=== PATIENT | male | born 1940 | race Caucasian/White ===

== ENCOUNTER 2017-06-07 18:11 | Observation (INO) ==
--- NOTE | 2017-06-07 18:29 | Emergency Department Note ---
Disposition Clinical Impression: Acute renal insufficiency Stroke Qualifiers: CVA mechanism: unspecified Qualified Code(s): I63.9 - Cerebral infarction, unspecified Disposition: Admitted As Inpatient Condition: Good Referrals: Dane Barrera MD [Primary Care Provider] - Forms: ED Satisfaction Letter Time of Disposition: 21:30 Neuro HPI - General Chief Complaint: ED Neuro Symptoms/Deficit Stated Complaint: Left Sided Weakness Time Seen by Provider: 06/07/17 18:14 Source: patient, EMS Limitations: no limitations Nursing Notes Reviewed: Yes Vital Signs Reviewed: Yes - History of Present Illness HPI Narrative: 76-year-old male presents to emergency department after waking up with left sided upper and lower extremity weakness this morning at 6 AM. Patient has no previous history of strokes. Patient states that his left knee was buckling upon ambulation. Patient states that the left upper and lower extremities feel different to him. Patient's family states that he is speaking a little slower than he was prior to the incident. Patient does admit to falling and hitting his head as well. He denies any neck pain. Patient states that he was not dizzy, did not have any palpitations when he fell. He stated that he fell due to his left leg weakness and his knee buckling. Patient's son had any issues with that in the past. - Related Data Home Medications: Home Medications Medication Instructions Recorded Confirmed Albuterol Sulfate [Albuterol 2 puff IH Q4HR PRN 06/07/17 06/07/17 Inhaler] Aspirin [Lo-Dose Aspirin EC] 81 mg PO DAILY 06/07/17 06/07/17 Clopidogrel [Plavix] 75 mg PO DAILY 06/07/17 06/07/17 Fluticasone/Salmeterol [Advair 1 each IH BID PRN 06/07/17 06/07/17 100-50 Diskus] Pioglitazone [Actos] 15 mg PO 0800 06/07/17 06/07/17 Primidone [Mysoline] 50 mg PO HS 06/07/17 06/07/17 Valsartan [Diovan] 160 mg PO DAILY 06/07/17 06/07/17 clonazePAM [Clonazepam] 2 mg PO DAILY 06/07/17 06/07/17 hydroCHLOROthiazide 12.5 mg PO DAILY 06/07/17 06/07/17 [Hydrochlorothiazide] Allergies/Adverse Reactions: Allergies Allergy/AdvReac Type Severity Reaction Status Date / Time codeine AdvReac Dizziness Verified 12/11/16 08:36 All systems ED: reviewed and negative except as stated. Review of Systems: As Per HPI Constitutional: Reports: weakness. Denies: fever Cardiovascular: Denies: chest pain, syncope Respiratory: Denies: cough, dyspnea Gastrointestinal: Reports: abdominal pain Musculoskeletal: Denies: back pain, neck pain Integumentary: Denies: rash, abrasion Neurological: Reports: weakness, numbness, paresthesias. Denies: headache Endocrine: Denies: fatigue Hematological/Lymphatic: Denies: easy bleeding Past Medical History - Past Medical History Medical history: Reports: COPD, diabetes, hypertension, myocardial infarction Psychiatric history: Reports: no psych history - Social History Smoking Status: Former smoker Smokeless Tobacco Status: No Alcohol use: Reports: none Drug use: Reports: none Physical Exam CONSTITUTIONAL: Alert and oriented X3, well-nourished, well appearing, in no apparent distress HEAD: Normocephalic; atraumatic. EYES: PERRL, no scleral icterus. NOSE: The nose is normal in appearance without rhinorrhea RESP: Normal chest excursion with respiration; breath sounds clear and equal bilaterally; no wheezes, rhonchi, or rales CARD: Regular rhythm, without murmurs, rub or gallop ABD: Non-distended; mild tenderness to palpation of the suprapubic region of the abdomen, soft,without rigidity, rebound or guarding SKIN: Normal for age and race; warm and dry; no apparent lesions Neuro: GCS 15, mild left sided facial droop, decreased sensation the left side of the face, decreased sensation of the left upper and left lower extremity, strength 4 out of 5 in the left upper and left lower extremity, 5 out of 5 in the right upper and right lower extremity. - General Limitations: no limitations General appearance: alert Course Vital Signs Temperature 98.0 F 06/07/17 18:13 Pulse Rate 103 06/07/17 18:13 Respiratory Rate 16 06/07/17 18:13 Blood Pressure 187/104 06/07/17 18:13 O2 Sat by Pulse Oximetry 98 06/07/17 18:13 Temperature 98.0 F 06/07/17 18:13 Pulse Rate 86 06/07/17 20:12 Respiratory Rate 14 06/07/17 20:12 Blood Pressure 170/84 06/07/17 20:12 O2 Sat by Pulse Oximetry 96 06/07/17 20:12 Oxygen Delivery Oxygen Delivery Room Air Neuro Symptoms/Deficit - MDM Narrative Medical decision making narrative: 76-year-old male presents to the emergency department with concern for ischemic stroke. We are obtaining a CT scan of the head without contrast to rule out intracranial hemorrhage. We will also obtain CBC, BMP, urinalysis, electrocardiogram, troponin, chest x-ray. Head CT reveals no acute intracranial abnormality. There are tiny left basal ganglia lacunar infarction which appears chronic as well as moderate chronic microvascular ischemic changes and global cerebral atrophy. Patient is currently out of the window for TPA as his symptoms started at 6 AM this morning. Patient was given aspirin here in the emergency department Chest x-ray did not reveal any acute abnormality. Patient was mildly hypertensive here initially, his initial blood pressure was 187/104. This did improve to 170/84. We will not give any blood pressure lowering medications at this time. Patient does have a mildly elevated creatinine at 1.32. This is not far from his baseline. We will admit this patient to the hospital at this time. Patient family agree with the plan. Head CT 06/07/17 18:25 IMPRESSION: No acute intracranial abnormality. Tiny left basal ganglia lacunar infarction which appears chronic. Moderate chronic microvascular ischemic changes and global cerebral atrophy. D/ / Samuel Wynn MD / Samuel Wynn MD Interpreting Provider: Samuel Wynn MD Chest X-Ray 06/07/17 18:58 IMPRESSION: No acute abnormality. D/ / Mark Alexandra / Mark Alexandra Interpreting Provider: Mark Alexandra Vital Signs Temperature 98.0 F 06/07/17 18:13 Pulse Rate 103 06/07/17 18:13 Respiratory Rate 16 06/07/17 18:13 Blood Pressure 187/104 06/07/17 18:13 O2 Sat by Pulse Oximetry 98 06/07/17 18:13 Temperature 98.0 F 06/07/17 18:13 Pulse Rate 86 06/07/17 20:12 Respiratory Rate 14 06/07/17 20:12 Blood Pressure 170/84 06/07/17 20:12 O2 Sat by Pulse Oximetry 96 06/07/17 20:12 Oxygen Delivery Oxygen Delivery Room Air - Lab Data Result diagrams: 06/07/17 18:41 06/07/17 18:41 Lab Results 06/07/17 06/07/17 06/07/17 Range/Units 18:41 18:41 18:41 WBC 7.4 (4.3-11.1) K/mcL RBC 5.02 (4.19-5.50) M/mcL Hgb 15.9 (12.9-16.9) g/dL Hct 46.8 (37.5-50.1) % MCV 93.2 (83.0-100.0) fL MCH 31.7 (28.0-33.3) pg MCHC 34.0 (31.6-35.5) g/dL RDW 12.9 (11.5-14.5) % Plt Count 170 (140-400) K/mcL MPV 9.4 (9.4-12.4) fL Immature Gran % 0.4 (0-4) % Seg Neutrophils % 60.6 % Lymphocytes % 13.1 % Monocytes % 9.7 % Eosinophils % 14.7 % Basophils % 1.5 % Neutrophils # 4.5 (1.6-8.9) K/mcL Lymphocytes # 1.0 (0.6-4.6) K/mcL Monocytes # 0.7 (0.0-1.3) K/mcL Eosinophils # 1.1 H (0.0-0.6) K/mcL Basophils # 0.1 (0.0-0.2) K/mcL PT 10.5 (9.4-12.1) Seconds INR 1.0 APTT 28.9 (26.0-36.0) Seconds Sodium 139 (136-145) mEq/L Potassium 4.3 (3.5-4.5) mEq/L Chloride 104 (98-109) mEq/L Carbon Dioxide 25 (19-29) mEq/L BUN 28 H (8-26) mg/dL Creatinine 1.32 H (0.72-1.25) mg/dL Est GFR ( Amer) > 60 (> 60) Est GFR (Non-Af Amer) 52 L (> 60) BUN/Creatinine Ratio 21 (6-26) Glucose 210 H (70-99) mg/dL Calculated Osmolality 300 (280-300) Calcium 9.3 (8.6-10.8) mg/dL Troponin I (0-0.03) ng/mL B-Natriuretic Peptide (0-100) pg/mL TSH (0.350-4.840) mcIU/mL Urine Color (Yellow) Urine Clarity (Clear) Urine pH (5.0-8.0) pH Units Ur Specific [place] (1.010-1.025) Urine Protein (Neg-Trace) mg/dL Urine Glucose (UA) (Normal) mg/dL Urine Ketones (Negative) mg/dL Urine Blood (Negative) Urine Nitrite (Negative) Urine Bilirubin (Negative) Urine Urobilinogen (Normal) mg/dL Ur Leukocyte Esterase (Negative) Ur Culture Indicated? (NO) 06/07/17 06/07/17 06/07/17 Range/Units 18:41 18:41 18:41 WBC (4.3-11.1) K/mcL RBC (4.19-5.50) M/mcL Hgb (12.9-16.9) g/dL Hct (37.5-50.1) % MCV (83.0-100.0) fL MCH (28.0-33.3) pg MCHC (31.6-35.5) g/dL RDW (11.5-14.5) % Plt Count (140-400) K/mcL MPV (9.4-12.4) fL Immature Gran % (0-4) % Seg Neutrophils % % Lymphocytes % % Monocytes % % Eosinophils % % Basophils % % Neutrophils # (1.6-8.9) K/mcL Lymphocytes # (0.6-4.6) K/mcL Monocytes # (0.0-1.3) K/mcL Eosinophils # (0.0-0.6) K/mcL Basophils # (0.0-0.2) K/mcL PT (9.4-12.1) Seconds INR APTT (26.0-36.0) Seconds Sodium (136-145) mEq/L Potassium (3.5-4.5) mEq/L Chloride (98-109) mEq/L Carbon Dioxide (19-29) mEq/L BUN (8-26) mg/dL Creatinine (0.72-1.25) mg/dL Est GFR ( Amer) (> 60) Est GFR (Non-Af Amer) (> 60) BUN/Creatinine Ratio (6-26) Glucose (70-99) mg/dL Calculated Osmolality (280-300) Calcium (8.6-10.8) mg/dL Troponin I 0.01 (0-0.03) ng/mL B-Natriuretic Peptide 24 (0-100) pg/mL TSH 3.324 (0.350-4.840) mcIU/mL Urine Color (Yellow) Urine Clarity (Clear) Urine pH (5.0-8.0) pH Units Ur Specific [place] (1.010-1.025) Urine Protein (Neg-Trace) mg/dL Urine Glucose (UA) (Normal) mg/dL Urine Ketones (Negative) mg/dL Urine Blood (Negative) Urine Nitrite (Negative) Urine Bilirubin (Negative) Urine Urobilinogen (Normal) mg/dL Ur Leukocyte Esterase (Negative) Ur Culture Indicated? (NO) 06/07/17 Range/Units 19:17 WBC (4.3-11.1) K/mcL RBC (4.19-5.50) M/mcL Hgb (12.9-16.9) g/dL Hct (37.5-50.1) % MCV (83.0-100.0) fL MCH (28.0-33.3) pg MCHC (31.6-35.5) g/dL RDW (11.5-14.5) % Plt Count (140-400) K/mcL MPV (9.4-12.4) fL Immature Gran % (0-4) % Seg Neutrophils % % Lymphocytes % % Monocytes % % Eosinophils % % Basophils % % Neutrophils # (1.6-8.9) K/mcL Lymphocytes # (0.6-4.6) K/mcL Monocytes # (0.0-1.3) K/mcL Eosinophils # (0.0-0.6) K/mcL Basophils # (0.0-0.2) K/mcL PT (9.4-12.1) Seconds INR APTT (26.0-36.0) Seconds Sodium (136-145) mEq/L Potassium (3.5-4.5) mEq/L Chloride (98-109) mEq/L Carbon Dioxide (19-29) mEq/L BUN (8-26) mg/dL Creatinine (0.72-1.25) mg/dL Est GFR ( Amer) (> 60) Est GFR (Non-Af Amer) (> 60) BUN/Creatinine Ratio (6-26) Glucose (70-99) mg/dL Calculated Osmolality (280-300) Calcium (8.6-10.8) mg/dL Troponin I (0-0.03) ng/mL B-Natriuretic Peptide (0-100) pg/mL TSH (0.350-4.840) mcIU/mL Urine Color Yellow (Yellow) Urine Clarity Clear (Clear) Urine pH 6.5 (5.0-8.0) pH Units Ur Specific [place] 1.019 (1.010-1.025) Urine Protein Negative (Neg-Trace) mg/dL Urine Glucose (UA) Normal (Normal) mg/dL Urine Ketones Negative (Negative) mg/dL Urine Blood Negative (Negative) Urine Nitrite Negative (Negative) Urine Bilirubin Negative (Negative) Urine Urobilinogen Normal (Normal) mg/dL Ur Leukocyte Esterase Negative (Negative) Ur Culture Indicated? NO (NO) - EKG Data EKG attestation: Yes I reviewed and interpreted this EKG. EKG results narrative: 18:22 Ventricular rate 99 bpm, AL interval 225 ms, QS duration 170 ms, QT 317 ms, QTC 374 ms, left axis deviation. Sinus rhythm with a ventricular rate of 99 bpm. There is a first-degree AV block.No acute ischemic changes are noted on the EKG. No significant changes compared to the old EKG dated on November 29, 2009. NIH Stroke Scale - Level of Consciousness LOC: Alert - LOC Questions LOC Questions: Answers both correctly - LOC Commands LOC Commands: Performs both correctly - Best Gaze Best Gaze: Normal - Visual Visual: No visual loss - Facial Palsy Facial Palsy: Minor asymmetry on smiling, flattened nasolabial fold - Motor Arms Motor Arm-Left: No drift for 10 seconds Motor Arm-Right: Some effort against gravity, limb drifts to bed - Motor Legs Motor Leg-Left: Some effort against gravity, limb drifts to bed Motor Leg-Right: No drift for 5 seconds - Limb Ataxia Limb Ataxia: Present in ONE limb - Sensory Sensory: Mild to moderate loss, "not as sharp" - Best Language Best Language: No aphasia - Dysarthria Dysarthria: Normal - Extinction and Inattention Extinction and Inattention: Normal - NIHSS Total Score NIHSS Total Score: 7 TPA Checklist - LKW: 3-4.5 hrs Add. Warnings/Precautions Patient/family understanding: The patient/family members have been counseled and understood the risk, benefit , and alternatives of treatment.
[2017-06-07 18:47] LABS: Basophils # 0.1 K/mcL (0.0-0.2); Basophils % 1.5 %; Eosinophils # 1.1 K/mcL (0.0-0.6); Eosinophils % 14.7 %; Hematocrit 46.8 % (37.5-50.1); Hemoglobin 15.9 g/dL (12.9-16.9); Immature Granulocytes % 0.4 % (0-4); Lymphocytes % 13.1 %; Mean Corpuscular Hemoglobin 31.7 pg (28.0-33.3); Mean Corpuscular Volume 93.2 fL (83.0-100.0); Mean Platelet Volume 9.4 fL (9.4-12.4); Monocytes # 0.7 K/mcL (0.0-1.3); Monocytes % 9.7 %; Neutrophils # 4.5 K/mcL (1.6-8.9); Platelet Count 170 K/mcL (140-400); Red Blood Count 5.02 M/mcL (4.19-5.50); Red Cell Distribution Width 12.9 % (11.5-14.5); Segmented Neutrophils % 60.6 %
[2017-06-07 18:53] LABS: Prothrombin Time 10.5 Seconds (9.4-12.1)
[2017-06-07 18:55] LABS: Activated Partial Thrombo Time 28.9 Seconds (26.0-36.0)
[2017-06-07 19:00] LABS: BUN/Creatinine Ratio 21 (6-26); Blood Urea Nitrogen 28 mg/dL (8-26); Calcium 9.3 mg/dL (8.6-10.8); Carbon Dioxide 25 mEq/L (19-29); Chloride 104 mEq/L (98-109); Glucose 210 mg/dL (70-99); Osmolality,Calculated 300 (280-300); Potassium 4.3 mEq/L (3.5-4.5); Sodium 139 mEq/L (136-145); eGFR For African Americans > 60 (> 60); eGFR For Non-African Americans 52 (> 60)
[2017-06-07] MEDS ORDERED: 0.9 % Sodium Chloride 1,000 ML IVC ONE (19:04)
[2017-06-07 19:31] LABS: Bilirubin,Urine Negative (Negative); Blood,Urine Negative (Negative); Clarity,Urine Clear (Clear); Color,Urine Yellow (Yellow); Glucose,Urine (UA) Normal (Normal); Ketones,Urine Negative (Negative); Leukocyte Esterase,Urine Negative (Negative); Nitrite,Urine Negative (Negative); PH,Urine 6.5 pH Units (5.0-8.0); Protein,Urine Negative (Neg-Trace); Specific Gravity,Urine 1.019 (1.010-1.025); Urobilinogen,Urine Normal (Normal)
[2017-06-07] MEDS ORDERED: Aspirin 81 MG TAB.CHEW PO ONE (20:14)
--- NOTE | 2017-06-07 20:41 | Emergency Department Note ---
START Narrative - START START: I examined this patient and my medical decision-making was reviewed with the Resident Physician. I agree with the documented findings, disposition and treatment plan as described except to the extent set forth below. 76 year old male presnts to the ED with left sided upper extremity waekness focuses on weakened cell attendant compared to the right. Marco is hypertensive with 180 /104 and now it is 170/84. Marco has mild insufficiency in addiiton to that. Marco has a old lacunar infarct without any previous neurological defeciencies. Marco will be admitted to medicine.
[2017-06-07] MEDS ORDERED: Ondansetron 4 MG/2 ML VIAL IVP PRN (21:59)
[2017-06-07] MEDS ORDERED: Acetaminophen 325 MG TABLET PO PRN (21:59)
[2017-06-07] MEDS ORDERED: Naloxone 0.4 MG/ML INJ IVP PRN (21:59)
--- NOTE | 2017-06-07 22:35 | Internal Med History&Physical ---
<Lulu Farah - Last Filed: 06/08/17 00:11> Date of Encounter: 06/08/17 Time of Encounter: 22:34 Assessment and Plan (1) Stroke Current visit: Yes Status: Acute Patient awoke this morning experiencing left-sided weakness as well as left- sided facial droop. CT of head does show an old lacunar infarct As well as chronic microvascular ischemic changes-the patient does have a history of hypertension diabetes and hyperlipidemia. Symptoms started approximately 6 AM this morning and he is beyond the window for TPA We will obtain MRI of head and brain NIHSS assessment We will obtain cardiac echo Carotid Doppler Obtain lipid profile Continue with aspirin and Plavix we will add a statin Continuous cardiac monitoring Fall precautions Consult neurology Consult PT OT and speech therapy Bedside swallowing evaluation per nursing Nothing by mouth for now Monitor blood sugars We will allow for permissive hypertension Qualifiers: CVA mechanism: unspecified Qualified Code(s): I63.9 - Cerebral infarction, unspecified (2) Acute renal insufficiency Current visit: Yes Status: Acute Patient's creatinine is slightly prolonged at 1.32 previous creatinine was 1.24. 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 We will continue to monitor and allow for permissive hypertension Qualifiers: Hypertension type: essential hypertension Qualified Code(s): I10 - Essential (primary) hypertension (5) DVT prophylaxis Current visit: Yes Status: Acute 1 heparin subcutaneous Internal Medicine - H&P: HPI Chief complaint: L sided weakness Admitted From: Emergency Dept Plans for Post Hospital Care: Home History of present illness: Mr. Jolley is a 76 year old male past medical history of diabetes hypertension coronary artery disease with 1 stent [place]. Patient awoke this morning around 6 AM was experiencing left-sided upper and lower extremity weakness. When attempting to ambulate on the surface left knee was buckling under her head he did have a fall striking his head on the wall he did not lose any consciousness he denies any neck pain. He denies any headache or vision changes, speech or difficulty swallowing. He presented to the ER with the above complaints. Lab work was obtained which did reveal a slightly elevated creatinine 1.32 which is not far from baseline CT of head revealed no acute intracranial abnormality. There are tiny left basal ganglia lacunar infarcts that appeared to be chronic as well as moderate chronic microvascular ischemic changes. Patient was outside the window for TPA. He initially presented with a blood pressure 187/ 104 however that did improve. The patient was admitted for further workup and evaluation. Presently patient does not appear to be any respiratory distress he denies any chest pain. He does appear to have a left-sided facial droop and left-sided weakness. He is hemodynamically stable this time. I did review his case with Dr. Machado who agrees with plan. Past Med Surg Social Fam HX - Past Medical History Medical history: COPD, diabetes, hypertension, myocardial infarction Psychiatric history: no psych history - Social History Smoking Status: Former smoker Smokeless Tobacco Status: No Alcohol use: none Drug use: none - Family History Mother Hx Family Cardiac Disorders: Yes (HTN) Hx Family Endocrine Disorder: Yes (DM) Father Hx Family Cardiac Disorders: Yes (HTN) Internal Medicine - H&P: Meds Albuterol Sulfate [Albuterol Inhaler] 2 puff IH Q4HR PRN 06/07/17 [History] Aspirin [Lo-Dose Aspirin EC] 81 mg PO DAILY 06/07/17 [History] Clopidogrel [Plavix] 75 mg PO DAILY 06/07/17 [History] Fluticasone/Salmeterol [Advair 100-50 Diskus] 1 each IH BID PRN 06/07/17 [ History] Pioglitazone [Actos] 15 mg PO 0800 06/07/17 [History] Primidone [Mysoline] 50 mg PO HS 06/07/17 [History] Valsartan [Diovan] 160 mg PO DAILY 06/07/17 [History] clonazePAM [Clonazepam] 2 mg PO DAILY 06/07/17 [History] hydroCHLOROthiazide [Hydrochlorothiazide] 12.5 mg PO DAILY 06/07/17 [History] 3 Allergy/AdvReac Type Severity Reaction Status Date / Time codeine AdvReac Dizziness Verified 12/11/16 08:36 All Systems PM: A 10-system review of systems was performed and is negative for pertinent findings except as documented above in the HPI. - Constitutional Constitutional: no chills, no fever(s), no night sweats - EENT Eyes: no change in vision, no discharge, no pain, no photophobia Ears: no ear discharge, no ear pain, no tinnitus Nose, mouth and throat: no dysphagia, no nasal discharge, no neck pain, no sore throat - Cardiovascular Cardiovascular ROS IM: no chest pain, no diaphoresis, no dyspnea, no lightheadedness, no palpitations, no syncope - Respiratory Respiratory: no cough, no dyspnea, no wheezing, no excessive phlegm production - Gastrointestinal Gastrointestinal: no abdominal pain, no diarrhea, no hematemesis, no hematochezia, no melena, no nausea, no vomiting - Musculoskeletal Musculoskeletal ROS IM: no numbness, no tingling - Integumentary Integumentary IM: no rash, no unusual bruising - Neurological Neurological ROS: no confusion, no convulsions, no focal weakness, no numbness, no tingling, no tremor(s) - Hematologic/Lymphatic Hematologic/Lymphatic: no easy bruising - Constitutional Vitals: Temp Pulse Resp BP Pulse Ox 98.0 F 86 16 145/69 96 06/07/17 18:13 06/07/17 20:12 06/07/17 21:39 06/07/17 21:39 06/07/17 20:12 General appearance: Present: A&O X 3 - Head Head exam: Present: atraumatic, normocephalic - Eye Eye exam: Present: PERRL, conjuntiva pink, sclera anicteric Pupils: Present: PERRL - Neck Neck exam general surgery: Present: supple, trachea midline. Absent: lymphadenopathy - Respiratory Respiratory exam: Present: CTAB. Absent: accessory muscle use, rales, rhonchi, wheezes - Cardiovascular Cardiovascular exam: Present: RRR, +S1, +S2. Absent: diastolic murmur, gallop, rubs, systolic murmur - GI/Abdominal GI/Abdominal exam: Present: normal bowel sounds, soft, no peritoneal signs. Absent: distended, tenderness - Extremities Exam Extremities exam: Present: warm, radial pulses palpable and symmetrical. Absent : calf tenderness, cyanotic, pedal edema - Neurological Exam Neurological exam: Present: CN II-XII intact, oriented X3, pronater drift, facial droop. Absent: speech deficit - Expanded Neurological Exam Patient oriented to: Present: person, place, time Cranial Nerves: EOM's intact PM: Normal Cerebellar function: finger to nose: Abnormal Left (over shoot ), heel to [place]: Normal Upper motor neuron: pronator drift: Abnormal Left Neuro motor strength exam: LUE: 4, RUE: 5, LLE: 4, RLE: 5 Coma Scale Eye Opening: Spontaneous Coma Scale Motor Response: Obeys Commands Coma Scale Verbal Response: Oriented Coma Scale Total: 15 - Skin Skin exam: Present: dry, intact Internal Med - H&P Results - Labs CBC & Chem 7: 06/07/17 18:41 06/07/17 18:41 - EKG Data EKG shows normal: sinus rhythm - EKG Data Prior EKG available for review: yes When compared to previous EKG: there is no significant change EKG comments: 06/08/17 00:01 First degree block - Diagnostic Studies Other Images Additional comments: Head CT 06/07/17 18:25 IMPRESSION: No acute intracranial abnormality. Tiny left basal ganglia lacunar infarction which appears chronic. Moderate chronic microvascular ischemic changes and global cerebral atrophy. D/ / Samuel Wynn MD / Samuel Wynn MD Interpreting Provider: Samuel Wynn MD Chest X-Ray 06/07/17 18:58 IMPRESSION: No acute abnormality. D/ / Mark Alexandra / Mark Alexandra Interpreting Provider: Mark Alexandra <Albert Machado - Last Filed: 06/08/17 03:33> Date of Encounter: 06/07/17 Internal Medicine - H&P: HPI History of present illness: Mr. Jolley is a 76 year old male All Systems PM: A 10-system review of systems was performed and is negative for pertinent findings except as documented above in the HPI. - Constitutional Vitals: Temp Pulse Resp BP Pulse Ox 98.6 F 93 17 170/84 96 06/07/17 23:18 06/07/17 23:18 06/07/17 23:18 06/07/17 23:18 06/07/17 23:18 Internal Med - H&P Results - Labs CBC & Chem 7: 06/08/17 00:23 06/08/17 00:23 Labs: Short CBC 06/08/17 Range/Units 00:23 WBC 7.8 (4.3-11.1) K/mcL Hgb 13.7 D (12.9-16.9) g/dL Hct 40.1 (37.5-50.1) % Plt Count 147 (140-400) K/mcL Neutrophils # 4.1 (1.6-8.9) K/mcL BMP 06/08/17 00:23 Sodium 140 Potassium 3.8 Chloride 108 Carbon Dioxide 26 BUN 23 Creatinine 1.06 Glucose 120 H Calcium 9.0 Cardiac Enzymes 06/08/17 Range/Units 00:23 Troponin I 0.01 (0-0.03) ng/mL - Attending Attestation Patient seen on June 07. I have independently seen and examined the patient and findings discussed withdictation are an note reviewed. Patient has come in with right hemiparesis and hemiparesthesia however lower extremity strength seems to be improving. He does have some ataxia but Romberg is negative. Chest examination showed clear lungs. His blood pressure is mildly elevated due to stroke. MRI ultrasound carotid echocardiogram lipid profile ordered. If the penis is a neurology can be involved. He needs PT OT valves. Plan discussed with patient and family.
[2017-06-07] MEDS ORDERED: Budesonide/Formoterol 80/4.5 MDI IH PRN (23:51)
[2017-06-07] MEDS ORDERED: Dextrose Gel 15 GM PO PRN ×2 (23:53)
[2017-06-07] MEDS ORDERED: D5% in Water 1,000 ML IVC PRN (23:53)
[2017-06-07] MEDS ORDERED: *HR* Dextrose 50 % in Water (Syg) 50 ML SYRINGE IVP PRN (23:53)
[2017-06-08 00:30] LABS: Basophils # 0.1 K/mcL (0.0-0.2); Basophils % 1.5 %; Eosinophils % 12.9 %; Hematocrit 40.1 % (37.5-50.1); Hemoglobin 13.7 g/dL (12.9-16.9); Immature Granulocytes % 0.3 % (0-4); Lymphocytes # 1.7 K/mcL (0.6-4.6); Lymphocytes % 22.2 %; Mean Corpuscular HGB Conc 34.2 g/dL (31.6-35.5); Mean Corpuscular Hemoglobin 31.6 pg (28.0-33.3); Mean Corpuscular Volume 92.4 fL (83.0-100.0); Monocytes # 0.8 K/mcL (0.0-1.3); Monocytes % 10.6 %; Neutrophils # 4.1 K/mcL (1.6-8.9); Platelet Count 147 K/mcL (140-400); Red Blood Count 4.34 M/mcL (4.19-5.50); Red Cell Distribution Width 12.9 % (11.5-14.5); Segmented Neutrophils % 52.5 %
[2017-06-08 00:45] LABS: BUN/Creatinine Ratio 22 (6-26); Blood Urea Nitrogen 23 mg/dL (8-26); Carbon Dioxide 26 mEq/L (19-29); Chloride 108 mEq/L (98-109); Chol/HDL Ratio 3.9 (0-4.9); Cholesterol 194 mg/dL (< 200); Glucose 120 mg/dL (70-99); HDL Cholesterol 50 mg/dL (40-59); LDL Cholesterol,Calculated 129 mg/dL (0-99); Osmolality,Calculated 295 (280-300); Potassium 3.8 mEq/L (3.5-4.5); Sodium 140 mEq/L (136-145); Triglycerides 75 mg/dL (< 150); eGFR For African Americans > 60 (> 60); eGFR For Non-African Americans > 60 (> 60)
[2017-06-08] MEDS: Insulin LISPRO 300 UNITS/3 ML VIAL SQ SCH ×5 (01:03→21:21)
[2017-06-08] MEDS: *HR* Heparin 5,000 UNIT/ML VIAL SQ SCH ×2 (06:27→17:06)
[2017-06-08] MEDS ORDERED: Aspirin Enteric Coated 81 MG Tablet PO SCH (09:00)
[2017-06-08] MEDS ORDERED: clonazePAM 1 MG TABLET PO SCH (09:00)
[2017-06-08] MEDS: Aspirin 81 MG TAB.CHEW PO SCH (09:31)
--- NOTE | 2017-06-08 12:27 | Internal Med Progress Note ---
Date of Encounter: 06/08/17 Time of Encounter: 09:00 - Assessment and plan (1) Acute renal insufficiency Current Visit: Yes Status: Acute Assessment and plan: Improved after treatment. Creatinine 1.06 today (2) Stroke Current Visit: Yes Status: Suspected Assessment and plan: Patient has left-sided weakness on upper and lower extremity. CT negative for hemorrhage. Consider ischemic stroke. - MRI ordered. - Continuous cardiac monitoring to rule out occult A. fib - Echo and duplex carotid - NIHSS - PT OT and swallow evaluation - Neurology consult - Patient is on aspirin, Plavix, and atorvastatin. Qualifiers: CVA mechanism: embolism Precerebral and cerebral artery: middle cerebral artery Laterality of affected vessel: right Qualified Code(s): I63.411 - Cerebral infarction due to embolism of right middle cerebral artery (3) Diabetes mellitus Current Visit: Yes Status: Chronic Assessment and plan: Place patient on sliding scale insulin. Qualifiers: Diabetes mellitus type: type 2 Diabetes mellitus complication status: without complication Diabetes mellitus yard assistant insulin use: with [facility] use Qualified Code(s): E11.9 - Type 2 diabetes mellitus without complications ; Z79.4 - alf (current) use of insulin; Z79.4 - filling machine tender (current) use of insulin; Z79.4 - filling machine tender (current) use of insulin; Z79.4 - filling machine tender ( current) use of insulin (4) HTN (hypertension) Current Visit: Yes Status: Chronic Assessment and plan: Hold home medication hydrochlorothiazide and valsartan for permissive hypertension. BP 136/65 Qualifiers: Hypertension type: essential hypertension Qualified Code(s): I10 - Essential (primary) hypertension (5) DVT prophylaxis Current Visit: Yes Status: Acute Assessment and plan: Heparin subcutaneously - Time Spent With Patient 25 - 35 minutes - Subjective Interval history: Patient was seen and examined. Still complaining of mild left side weakness, no slurred speech. Patient is awake alert and oriented 3. Vital signs stable. Continue PT OT, neurology consult. MRI, echo, carotid duplex result is pending - Constitutional Vitals: Temp Pulse Resp BP Pulse Ox 97.5 F L 76 16 136/65 94 06/08/17 11:43 06/08/17 11:43 06/08/17 11:43 06/08/17 11:43 06/08/17 11:43 General appearance: Present: A&O X 3 - Head Head exam: Present: atraumatic, normocephalic - Eye Eye exam: Present: PERRL, conjuntiva pink, sclera anicteric Pupils: Present: PERRL - Neck Neck exam general surgery: Present: supple, trachea midline. Absent: lymphadenopathy - Respiratory Respiratory exam: Present: CTAB. Absent: accessory muscle use, rales, rhonchi, wheezes - Cardiovascular Cardiovascular exam: Present: RRR, +S1, +S2. Absent: diastolic murmur, gallop, rubs, systolic murmur - GI/Abdominal GI/Abdominal exam: Present: normal bowel sounds, soft, no peritoneal signs. Absent: distended, tenderness - Extremities Exam Extremities exam: Present: warm, radial pulses palpable and symmetrical. Absent : calf tenderness, cyanotic, pedal edema - Neurological Exam Neurological exam: Present: CN II-XII intact, motor sensory deficit (Left UE/LE 4+/5), oriented X3, no focal deficits. Absent: pronater drift, facial droop, speech deficit - Skin Skin exam: Present: dry, intact Internal Medicine: Result - Labs CBC & Chem 7: 06/08/17 00:23 06/08/17 00:23 Labs: Short CBC 06/08/17 Range/Units 00:23 WBC 7.8 (4.3-11.1) K/mcL Hgb 13.7 D (12.9-16.9) g/dL Hct 40.1 (37.5-50.1) % Plt Count 147 (140-400) K/mcL Neutrophils # 4.1 (1.6-8.9) K/mcL BMP 06/08/17 00:23 Sodium 140 Potassium 3.8 Chloride 108 Carbon Dioxide 26 BUN 23 Creatinine 1.06 Glucose 120 H Calcium 9.0 Cardiac Enzymes 06/08/17 06/08/17 Range/Units 00:23 06:12 Troponin I 0.01 0.02 (0-0.03) ng/mL - ABG Interpretation ABG results: PT/INR, D-dimer PT 10.5 Seconds (9.4-12.1) 06/07/17 18:41 Consult Discharge Plan - Plan Referrals: Dane Barrera MD [Primary Care Provider] -
--- NOTE | 2017-06-08 13:47 | Neurology - Consult Note ---
Date of Encounter: 06/08/17 Time of Encounter: 08:25 Assessment and Plan (1) Right hemisphere, cerebral infarction Current Visit: Yes Status: Acute This patient who seems to have a left-sided weakness started some times in the night as he woke up with the symptoms he was not a candidate for any TPA though he did have a mild weakness of his left upper and lower extremity but symptoms are likely related to underlying ischemic infarct. With this elevated blood pressure certainly that is a possibility He will need a stroke workup including MRI of the brain that is scheduled for this morning At the same time suggest getting an echocardiogram as well as carotid duplex for an embolic source Currently he is on aspirin suggested to continue along with the Plavix Monitor him for any underlying cardiac arrhythmias Continue to monitor his blood pressure keep it is stable He would probably benefit from physical therapy evaluation as well Patient also noted to have decreased facial expressions and very mild tremors early symptoms of parkinsonism cannot be excluded that could be evaluated later on as an outpatient when he is more stable and back to his baseline History of Present Illness HPI: Mr. Jolley is a 76 year old male with past medical history of diabetes hypertension coronary artery disease, admitted with left sided weakness, that he woke up with. when trying to ambulate he fell striking his head on the wall, he did not lose any consciousness. He presented to the ER, out side TPA window, CT of head revealed no acute intracranial abnormality, except chronic changes along with lacunar left basal ganglia infarct. his blood pressure was 187/104 however it has improved now, patient does not appear to be any respiratory distress he denies any chest pain. He does appear to have a left-sided facial droop and left-sided weakness. He denies any headache or vision changes, speech or difficulty swallowing. Past Med Surg Social Fam HX - Past Medical History Medical history: COPD, diabetes, hypertension, myocardial infarction Psychiatric history: no psych history - Past Surgical History Surgical History: cholecystectomy, herniorrhaphy, LE stent(s) - Social History Smoking Status: Former smoker Smokeless Tobacco Status: No Alcohol use: none Drug use: none - Family History Mother Hx Family Cardiac Disorders: Yes (HTN) Hx Family Endocrine Disorder: Yes (DM) Father Hx Family Cardiac Disorders: Yes (HTN) Medications and Allergies Albuterol Sulfate [Albuterol Inhaler] 2 puff IH Q4HR PRN 06/07/17 [History] Aspirin [Lo-Dose Aspirin EC] 81 mg PO DAILY 06/07/17 [History] Clopidogrel [Plavix] 75 mg PO DAILY 06/07/17 [History] Fluticasone/Salmeterol [Advair 100-50 Diskus] 1 each IH BID PRN 06/07/17 [ History] Pioglitazone [Actos] 15 mg PO 0800 06/07/17 [History] Primidone [Mysoline] 50 mg PO HS 06/07/17 [History] Valsartan [Diovan] 160 mg PO DAILY 06/07/17 [History] hydroCHLOROthiazide [Hydrochlorothiazide] 12.5 mg PO DAILY 06/07/17 [History] clonazePAM [Klonopin] 1 mg PO BID 06/08/17 [History] 3 Allergy/AdvReac Type Severity Reaction Status Date / Time codeine AdvReac Dizziness Verified 12/11/16 08:36 All Systems: A 10-system review of systems was performed and is negative for pertinent findings except as documented above in the HPI. Physical Examination - Vital Signs Vital Signs: Initial Vital Signs Temp Pulse Resp BP Pulse Ox 98.0 F 103 16 187/104 98 06/07/17 18:13 06/07/17 18:13 06/07/17 18:13 06/07/17 18:13 06/07/17 18:13 - Constitutional General appearance: comfortable - Neurologic Sensorimotor examination: intact Motor examination - right side: 5/5: deltoids, biceps, triceps, wrist flexion, wrist extension, central stores attendant, hip flexors, tibialis Anterior, quadriceps, toe extension (EHL), plantarflexion Motor examination - left side: 3/5: deltoids, biceps, triceps, wrist flexion, wrist extension, hip flexors, central stores attendant, quadriceps, tibialis Anterior, toe extension (EHL), plantarflexion Detailed sensory examination: intact Reflex and gait examination: intact Reflexes: Biceps: 1+, Triceps: 1+, Brachioradialis: 1+, Patella: 1+, Achilles: 1 + Mental Status Examination: awake, alert, oriented to person, oriented to place, oriented to time, answers questions appropriately Cranial nerve examination: PERRL, EOMI, visual brito intact Ataxia: left upper extremity Results - Laboratory Findings CBC and BMP: 06/08/17 00:23 06/08/17 00:23 Abnormal lab findings: Abnormal lab results MPV 9.0 fL (9.4-12.4) L 06/08/17 00:23 Eosinophils # 1.0 K/mcL (0.0-0.6) H 06/08/17 00:23 Glucose 120 mg/dL (70-99) H 06/08/17 00:23 POC Glucose 116 (58-89) H 06/08/17 05:13 LDL Cholesterol, Calc 129 mg/dL (0-99) H 06/08/17 00:23 - Diagnostic Findings Additional findings: CT head old lacunar infarct ch changes Consult Discharge Plan - Plan Referrals: Dane Barrera MD [Primary Care Provider] -
--- NOTE | 2017-06-08 15:43 | Electrocardiograph Report ---
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
[2017-06-08] MEDS: clonazePAM 1 MG TABLET PO SCH (21:15)
[2017-06-09] MEDS: *HR* Heparin 5,000 UNIT/ML VIAL SQ SCH ×2 (05:18→16:34)
[2017-06-09 06:15] LABS: Basophils # 0.1 K/mcL (0.0-0.2); Basophils % 1.7 %; Eosinophils # 0.8 K/mcL (0.0-0.6); Eosinophils % 12.8 %; Hematocrit 41.1 % (37.5-50.1); Hemoglobin 13.8 g/dL (12.9-16.9); Immature Granulocytes % 0.5 % (0-4); Lymphocytes # 1.6 K/mcL (0.6-4.6); Lymphocytes % 24.6 %; Mean Corpuscular HGB Conc 33.6 g/dL (31.6-35.5); Mean Corpuscular Hemoglobin 31.4 pg (28.0-33.3); Mean Corpuscular Volume 93.4 fL (83.0-100.0); Mean Platelet Volume 9.6 fL (9.4-12.4); Monocytes # 0.8 K/mcL (0.0-1.3); Monocytes % 12.5 %; Neutrophils # 3.1 K/mcL (1.6-8.9); Platelet Count 150 K/mcL (140-400); Red Cell Distribution Width 12.9 % (11.5-14.5); Segmented Neutrophils % 47.9 %
[2017-06-09 06:28] LABS: BUN/Creatinine Ratio 18 (6-26); Blood Urea Nitrogen 21 mg/dL (8-26); Calcium 9.2 mg/dL (8.6-10.8); Carbon Dioxide 25 mEq/L (19-29); Chloride 108 mEq/L (98-109); Glucose 124 mg/dL (70-99); Osmolality,Calculated 292 (280-300); Potassium 3.9 mEq/L (3.5-4.5); Sodium 139 mEq/L (136-145); eGFR For African Americans > 60 (> 60); eGFR For Non-African Americans 59 (> 60)
[2017-06-09] MEDS: Insulin LISPRO 300 UNITS/3 ML VIAL SQ SCH ×4 (08:14→21:09)
[2017-06-09] MEDS: Aspirin 81 MG TAB.CHEW PO SCH (08:14)
[2017-06-09] MEDS: clonazePAM 1 MG TABLET PO SCH ×2 (08:14→21:07)
--- NOTE | 2017-06-09 11:44 | Neurology Progress Note ---
Date of Encounter: 06/09/17 Time of Encounter: 07:30 Assessment and Plan (1) Right hemisphere, cerebral infarction Current Visit: Yes Status: Acute MRI confirmed a right hemispheric infarct at the same time he did have a mild to moderate stenosis of the right carotid though it is not a critical stenosis but considering his symptoms predominantly on the right side makes me wonder that perhaps it could be the source of his multiple infarct that was predominant in his right hemisphere though there is a concern that this could be related to hypoperfusion but they are present in right hemisphere. Suggest to continue on aspirin and Plavix awaits echo cardiogram Continue monitor him for any arrhythmias and blood pressure he would probably benefit from short-term rehabilitation Subjective Interval history: Patient seems to be stable. Denies any other new problems on any other new symptoms still have weakness of his left upper and lower extremity MRI confirms right hemispheric infarct in MCA distribution. he seems to be stable maintained on aspirin and Plavix Objective - Constitutional Vitals: Temp Pulse Resp BP Pulse Ox 97.9 F 74 18 156/89 98 06/09/17 08:14 06/09/17 08:14 06/09/17 08:14 06/09/17 08:14 06/09/17 08:14 - Neurological Exam Sensorimotor examination: Present: intact Motor examination - right side: 5/5: deltoids, biceps, triceps, wrist flexion, wrist extension, cabin cleaning supervisor, hip flexors, tibialis Anterior, quadriceps, toe extension (EHL), plantarflexion Motor examination - left side: 4/5: deltoids, biceps, triceps, wrist flexion, wrist extension, hip flexors, cabin cleaning supervisor, quadriceps, tibialis Anterior, toe extension (EHL), plantarflexion Sensation intact: Present: intact Reflex and gait examination: intact Reflexes: Biceps: 1+, Triceps: 1+, Brachioradialis: 1+, Patella: 1+, Achilles: 1 + Mental Status Examination: Present: awake, alert, oriented to person, oriented to place, oriented to time, answers questions appropriately Cranial nerve examination: Present: PERRL, EOMI, visual brito intact Results - Laboratory Findings CBC and BMP: 06/09/17 05:17 06/09/17 05:17 Abnormal lab findings: Abnormal lab results Eosinophils # 0.8 K/mcL (0.0-0.6) H 06/09/17 05:17 Est GFR (Non-Af Amer) 59 (> 60) L 06/09/17 05:17 Glucose 124 mg/dL (70-99) H 06/09/17 05:17 POC Glucose 128 (58-89) H 06/09/17 08:12 LDL Cholesterol, Calc 129 mg/dL (0-99) H 06/08/17 00:23 - Diagnostic Findings Additional findings: MRI of brain shows : Scattered areas of acute infarction within the right cerebral hemisphere. The majority of these appear to be in a watershed distribution. Suggest correlation with episode of hypotension. 2. No evidence of mass effect or midline shift. 3. Mild global parenchymal more loss with chronic microvascular ischemic change. Carotid , right 40-59% stenosis left is normal Consult Discharge Plan - Plan Referrals: Dane Barrera MD [Primary Care Provider] -
--- NOTE | 2017-06-09 12:05 | Internal Med Progress Note ---
Date of Encounter: 06/09/17 Time of Encounter: 11:45 - Assessment and plan (1) Right hemisphere, cerebral infarction Current Visit: Yes Status: Acute Assessment and plan: MRI reported right hemispheric infarct Neurology on board and consultation appreciated continue ASA and plavix pending echocardiogram likely d/c to ECF in am (2) Acute renal insufficiency Current Visit: Yes Status: Resolved Assessment and plan: resolved renal function at baseline continue to monitor (3) Diabetes mellitus Current Visit: Yes Status: Chronic Assessment and plan: continue sliding scale insulin algorithm monitor fingerstick and blood glucose ADA diet Qualifiers: Diabetes mellitus type: type 2 Diabetes mellitus complication status: without complication Diabetes mellitus [facility] insulin use: with [facility] use Qualified Code(s): E11.9 - Type 2 diabetes mellitus without complications ; Z79.4 - buttermaker (current) use of insulin; Z79.4 - buttermaker (current) use of insulin; Z79.4 - [facility] (current) use of insulin; Z79.4 - [facility] ( current) use of insulin (4) HTN (hypertension) Current Visit: Yes Status: Chronic Assessment and plan: continue to hold home medication hydrochlorothiazide and valsartan for permissive hypertension. BP 136/84 restart home antihypertensives for SBP>150 will closely monitor Qualifiers: Hypertension type: essential hypertension Qualified Code(s): I10 - Essential (primary) hypertension (5) DVT prophylaxis Current Visit: Yes Status: Acute Assessment and plan: Heparin subcutaneously - Subjective Interval history: Patient seen and examined at bedside. Reports of persistent left upper and lower extremity weakness that is gradually improving MRI confirming right hemispheric infarct PT/OT evaluation recommended ECF awaiting echo testing for d/c likely d/c in am - Constitutional Vitals: Temp Pulse Resp BP Pulse Ox 97.8 F 76 18 136/84 97 06/09/17 11:47 06/09/17 11:47 06/09/17 11:47 06/09/17 11:47 06/09/17 11:47 General appearance: Present: cooperative, A&O X 3, pleasant, no acute distress, answers questions appropriately - Head Head exam: Present: atraumatic, normocephalic - Eye Eye exam: Present: conjuntiva pink, sclera anicteric - Respiratory Respiratory exam: Present: CTAB. Absent: respiratory distress, wheezes - Cardiovascular Cardiovascular exam: Present: RRR, +S1, +S2. Absent: diastolic murmur, systolic murmur - GI/Abdominal GI/Abdominal exam: Present: normal bowel sounds, soft, no peritoneal signs. Absent: distended, tenderness - Extremities Exam Extremities exam: Present: warm, radial pulses palpable and symmetrical. Absent : calf tenderness, cyanotic, pedal edema Additional comments: left upper and lower extremity weakness - Neurological Exam Neurological exam: Present: alert, oriented X3. Absent: strengths equal and symetr throughout (left sidede weakness), facial droop, speech deficit - Psychiatric Psychiatric exam: Present: normal affect, normal mood Internal Medicine: Result - Labs CBC & Chem 7: 06/09/17 05:17 06/09/17 05:17 Labs: Short CBC 06/09/17 Range/Units 05:17 WBC 6.4 (4.3-11.1) K/mcL Hgb 13.8 (12.9-16.9) g/dL Hct 41.1 (37.5-50.1) % Plt Count 150 (140-400) K/mcL Neutrophils # 3.1 (1.6-8.9) K/mcL BMP 06/09/17 05:17 Sodium 139 Potassium 3.9 Chloride 108 Carbon Dioxide 25 BUN 21 Creatinine 1.20 Glucose 124 H Calcium 9.2 - ABG Interpretation ABG results: PT/INR, D-dimer PT 10.5 Seconds (9.4-12.1) 06/07/17 18:41 - Impressions Impressions Brain MRI 06/08/17 22:04 IMPRESSION: 1. Scattered areas of acute infarction within the right cerebral hemisphere. The majority of these appear to be in a watershed distribution. Suggest correlation with episode of hypotension. 2. No evidence of mass effect or midline shift. 3. Mild global parenchymal more loss with chronic microvascular ischemic change. These results were sent to the [facility] on 06/08/2017 at 1:48 pm to be communicated to the referring/covering health care provider/office. D/ / Vitaliy Whitaker MD / Vitaliy Whitaker MD Interpreting Provider: Vitaliy Whitaker MD Consult Discharge Plan - Plan Referrals: Dane Barrera MD [Primary Care Provider] -
[2017-06-10 05:16] LABS: Basophils # 0.1 K/mcL (0.0-0.2); Basophils % 1.7 %; Eosinophils # 0.7 K/mcL (0.0-0.6); Eosinophils % 10.6 %; Hematocrit 43.4 % (37.5-50.1); Hemoglobin 14.9 g/dL (12.9-16.9); Immature Granulocytes % 0.3 % (0-4); Lymphocytes # 1.8 K/mcL (0.6-4.6); Lymphocytes % 27.9 %; Mean Corpuscular HGB Conc 34.3 g/dL (31.6-35.5); Mean Corpuscular Hemoglobin 31.8 pg (28.0-33.3); Mean Corpuscular Volume 92.5 fL (83.0-100.0); Mean Platelet Volume 9.5 fL (9.4-12.4); Monocytes # 0.8 K/mcL (0.0-1.3); Monocytes % 11.8 %; Platelet Count 157 K/mcL (140-400); Red Blood Count 4.69 M/mcL (4.19-5.50); Red Cell Distribution Width 12.9 % (11.5-14.5); Segmented Neutrophils % 47.7 %
[2017-06-10 05:43] LABS: BUN/Creatinine Ratio 19 (6-26); Blood Urea Nitrogen 23 mg/dL (8-26); Calcium 9.2 mg/dL (8.6-10.8); Carbon Dioxide 25 mEq/L (19-29); Chloride 107 mEq/L (98-109); Glucose 129 mg/dL (70-99); Magnesium 1.8 mg/dL (1.6-2.6); Osmolality,Calculated 295 (280-300); Phosphorous 3.5 mg/dL (2.3-4.7); Potassium 3.8 mEq/L (3.5-4.5); Sodium 140 mEq/L (136-145); eGFR For African Americans > 60 (> 60); eGFR For Non-African Americans 56 (> 60)
[2017-06-10] MEDS: *HR* Heparin 5,000 UNIT/ML VIAL SQ SCH (05:56)
[2017-06-10] MEDS: Aspirin 81 MG TAB.CHEW PO SCH (07:39)
[2017-06-10] MEDS: clonazePAM 1 MG TABLET PO SCH (07:39)
[2017-06-10 08:00] VITALS: BP 139/86
[2017-06-10] MEDS: Insulin LISPRO 300 UNITS/3 ML VIAL SQ SCH ×2 (08:20→12:31)
[2017-06-10] MEDS ORDERED: Valsartan 160 MG TABLET PO SCH (09:00)
[2017-06-10] MEDS ORDERED: NON-FORMULARY MEDICATION 1 EACH EACH (Hydrochlorothiazide [Hydrochlorothiazide] 12.5 MG) PO SCH (09:00)
--- NOTE | 2017-06-10 10:59 | Neurology Progress Note ---
Date of Encounter: 06/10/17 Time of Encounter: 08:25 Assessment and Plan (1) Right hemisphere, cerebral infarction Current Visit: Yes Status: Acute Currently patient is a stable continue on aspirin and Plavix he did have a mild carotid stenosis for which he would need a repeat scan in 6 month to a year and follow up with neurology and vascular surgery Patient would benefit from short-term rehabilitation [place] discharge from neurology standpoint to the rehabilitation Subjective Interval history: Patient seems to be stable. Denies any other new problems on any other new symptoms still have weakness of his left upper and lower extremity MRI confirms right hemispheric infarct in MCA distribution. he seems to be stable maintained on aspirin and Plavix Echocardiogram is negative for any embolic source and a very mild stenosis of right carotid with 59% range Objective - Constitutional Vitals: Temp Pulse Resp BP Pulse Ox 98.4 F 69 18 139/86 97 06/10/17 07:56 06/10/17 07:56 06/10/17 07:56 06/10/17 07:56 06/10/17 07:56 - Neurological Exam Sensorimotor examination: Present: intact Motor examination - left side: 4/5: deltoids, biceps, triceps, wrist flexion, wrist extension, hip flexors, head banquet waitress, quadriceps, tibialis Anterior, toe extension (EHL), plantarflexion Sensation intact: Present: intact Reflex and gait examination: intact Mental Status Examination: Present: awake, alert, oriented to person, oriented to place, oriented to time, answers questions appropriately Cranial nerve examination: Present: PERRL, EOMI, visual brito intact Results - Laboratory Findings CBC and BMP: 06/10/17 04:34 06/10/17 04:34 Abnormal lab findings: Abnormal lab results Eosinophils # 0.7 K/mcL (0.0-0.6) H 06/10/17 04:34 Est GFR (Non-Af Amer) 56 (> 60) L 06/10/17 04:34 Glucose 129 mg/dL (70-99) H 06/10/17 04:34 POC Glucose 157 (58-89) H 06/09/17 16:17 LDL Cholesterol, Calc 129 mg/dL (0-99) H 06/08/17 00:23 Consult Discharge Plan - Plan Referrals: Dane Barrera MD [Primary Care Provider] -
--- NOTE | 2017-06-10 12:24 | Discharge Summary ---
Date of Encounter: 06/10/17 Time of Encounter: 11:50 - Discharge Diagnosis (1) Right hemisphere, cerebral infarction Priority: Primary Status: Acute (2) Acute renal insufficiency Priority: Secondary Status: Resolved (3) Diabetes mellitus Priority: Secondary Status: Chronic Qualifiers: Diabetes mellitus type: type 2 Diabetes mellitus complication status: without complication Diabetes mellitus bed bug exterminator insulin use: with bed bug exterminator use Qualified Code(s): E11.9 - Type 2 diabetes mellitus without complications ; Z79.4 - skilled nursing (current) use of insulin; Z79.4 - terminal press operator (current) use of insulin; Z79.4 - terminal press operator (current) use of insulin; Z79.4 - skilled nursing ( current) use of insulin (4) HTN (hypertension) Priority: Secondary Status: Chronic Qualifiers: Hypertension type: essential hypertension Qualified Code(s): I10 - Essential (primary) hypertension (5) DVT prophylaxis Priority: Secondary Status: Acute - Discharge Medications Home Medications: Albuterol Sulfate [Albuterol Inhaler] 2 puff IH Q4HR PRN 06/07/17 [History] Aspirin [Lo-Dose Aspirin EC] 81 mg PO DAILY 06/07/17 [History] Clopidogrel [Plavix] 75 mg PO DAILY 06/07/17 [History] Fluticasone/Salmeterol [Advair 100-50 Diskus] 1 each IH BID PRN 06/07/17 [ History] Pioglitazone [Actos] 15 mg PO 0800 06/07/17 [History] Primidone [Mysoline] 50 mg PO HS 06/07/17 [History] Valsartan [Diovan] 160 mg PO DAILY 06/07/17 [History] hydroCHLOROthiazide [Hydrochlorothiazide] 12.5 mg PO DAILY 06/07/17 [History] clonazePAM [Klonopin] 1 mg PO BID 06/08/17 [History] Atorvastatin [Lipitor] 40 mg PO HS tablet 06/10/17 [Rx] Allergies/Adverse Reactions: 3 Allergy/AdvReac Type Severity Reaction Status Date / Time codeine AdvReac Dizziness Verified 12/11/16 08:36 Procedures/tests Complete & Pending: Procedures Performed prior 72 hours Category Date Time Status MR head/brain wo con [MR] Routine MRI 06/08/17 22:04 Completed EV carotid duplex imaging BI Routine Y 06/08/17 22:02 Completed EV echocardiogram Stat Y 12/12/17 12:02 Completed Date of admission: 06/07/17 21:00 Primary care physician: Dane Barrera MD Consults: 06/07/17 22:01 Consult to Occupational Therapy [CONS] Routine Comment: Evaluate, develop and implement POC Reason for Consult: L sided weakness Consult to Physical Therapy [CONS] Routine Comment: Evaluate, develop and implement POC Reason for Consult: l sided weakness 06/07/17 23:31 Consult to Consumer Affairs Specialist [CONS] Routine Reason for SW Consult: New onset weakness, PT and OT on board. Lives alone 06/07/17 23:54 Consult to Neurology [CONS] Routine Consulting Provider: [facility] Reason for Consult: L sided weakness Time Notified: 23:54 Call Completed: No 06/07/17 23:55 Consult to Speech Therapy [CONS] Routine Comment: Evaluate, develop and implement POC Reason for Consult: swallow eval Time Notified: 23:55 Call Completed: No Discharging clinician: Rachel Luque Anticipated date of discharge: 06/10/17 - Patient Status Disposition: Transfer SNF Condition: Good Functional capacity at discharge: uses cane/walker Overall status at discharge: patient is progressing back to baseline - Discharge Instructions Follow Up With: Dane Barrera MD [Primary Care Provider] - Additional Instructions: Please follow up with your primary care physician within five days after your discharge from the hospital. Please follow up with neurology within one week after your discharge from the hospital please continue to take aspirin, plavix, and lipitor in addition to all your other home medications Hold your blood pressure medications if your systolic blood pressure is less than 120 - Diet and Activity Activity: as per physical therapy Diet: diabetic diet, low fat, low cholesterol, low salt diet Hospital course: Mr. Jolley is a 76 year old male with PMH of DM, HTN, CAD admitted for LUE and LLE weakness and was found to have an acute CVA. He was followed by neurology. MRI head reported right hemispheric infarct. As per neuro he was recommended to continue aspirin, plavix, and lipitor. He was evaluated by physical therapy and ECF was recommended. At this time pt is stable for discharge to ECF. - Time Spent with Patient Total time spent providing and/or coordinating discharge services: Less than 30 minutes - Constitutional Vitals: Temp Pulse Resp BP Pulse Ox 98.4 F 69 18 139/86 97 06/10/17 07:56 06/10/17 07:56 06/10/17 07:56 06/10/17 07:56 06/10/17 07:56 General appearance: Present: cooperative, A&O X 3, pleasant, no acute distress, answers questions appropriately - Head Head exam: Present: atraumatic, normocephalic - Eye Eye exam: Present: conjuntiva pink, sclera anicteric - Respiratory Respiratory exam: Present: CTAB. Absent: respiratory distress, wheezes - Cardiovascular Cardiovascular exam: Present: RRR, +S1, +S2. Absent: diastolic murmur, gallop, rubs, systolic murmur - GI/Abdominal GI/Abdominal exam: Present: normal bowel sounds, soft, no peritoneal signs. Absent: distended, tenderness - Extremities Exam Extremities exam: Present: warm, radial pulses palpable and symmetrical. Absent : calf tenderness, pedal edema - Neurological Exam Neurological exam: Present: alert, oriented X3. Absent: strengths equal and symetr throughout (LUE and LLE weakness), facial droop, speech deficit - Psychiatric Psychiatric exam: Present: normal affect, normal mood
--- NOTE | 2017-06-10 12:27 | Physician Discharge Referral ---
ExtendedCare Referral Info Transfer To: F Provider in Charge after Transfer: PCP - Diagnosis (1) Right hemisphere, cerebral infarction Priority: Primary Status: Acute (2) Acute renal insufficiency Priority: Secondary Status: Resolved (3) Diabetes mellitus Priority: Secondary Status: Chronic (4) HTN (hypertension) Priority: Secondary Status: Chronic (5) DVT prophylaxis Priority: Secondary Status: Acute - Transfer Medications Home Medications: Albuterol Sulfate [Albuterol Inhaler] 2 puff IH Q4HR PRN 06/07/17 [History] Aspirin [Lo-Dose Aspirin EC] 81 mg PO DAILY 06/07/17 [History] Clopidogrel [Plavix] 75 mg PO DAILY 06/07/17 [History] Fluticasone/Salmeterol [Advair 100-50 Diskus] 1 each IH BID PRN 06/07/17 [ History] Pioglitazone [Actos] 15 mg PO 0800 06/07/17 [History] Primidone [Mysoline] 50 mg PO HS 06/07/17 [History] Valsartan [Diovan] 160 mg PO DAILY 06/07/17 [History] hydroCHLOROthiazide [Hydrochlorothiazide] 12.5 mg PO DAILY 06/07/17 [History] clonazePAM [Klonopin] 1 mg PO BID 06/08/17 [History] Atorvastatin [Lipitor] 40 mg PO HS tablet 06/10/17 [Rx] Allergies/Adverse Reactions: 3 Allergy/AdvReac Type Severity Reaction Status Date / Time codeine AdvReac Dizziness Verified 12/11/16 08:36 - Respiratory Orders Smoking Cessation: Smoking cessation has been advised. For more information, call the [place] Tobacco Quit Line at 2-935-AVPK-NOW. - Rehabiliation Orders Other: Please follow up with your primary care physician within five days after your discharge from the hospital. Please follow up with neurology within one week after your discharge from the hospital please continue to take aspirin, plavix, and lipitor in addition to all your other home medications Hold your blood pressure medications if your systolic blood pressure is less than 120 CERTIFICATION: I certify that the transfer of the above named patient to an Extended Care Facility is necessary for the continuing treatment of the diagnosis listed. The above information is true and accurate reflection of patient's current condition. Confidential - Redisclosure prohibited without a patient's written consent.
== END 2017-06-10 14:13 ==
LOC: EMEROO 18:11 → 2NENU 18:11 → SUATTDRO 21:00 → 2NENU 22:52
PROVIDERS: ADMIT Internal Medicine; ATTEND Internal Medicine